=== PATIENT | female | born 1980 | race Caucasian/White ===

== ENCOUNTER 2021-11-04 06:44 | Outpatient (CLI) | payer OTHER, SELFPAY ==
--- NOTE | ~2021-11-04 | MR_ITS ---
EXAMINATION: MR brain/brain stem wo/w con DATE: 11/04/2021 08:04 INDICATION: 3 months of visual disturbance TECHNIQUE: 1. Magnetic resonance imaging (MRI) of the brain and brainstem was performed without and with 18 mL M ultihance intravenous contrast. Sequences included sagittal and axial T1-weighted SE, axial diffusion -weighted FS SE, axial T2*-weighted GRE, axial T2-weighted FLAIR, and axial T2-weighted FSE. Postcont rast axial and coronal T1-weighted SE was obtained. Apparent diffusion coefficient (ADC) maps were cr eated. 2. MRI of the orbits and face was performed without and with 18 mL MultiHance intravenous contrast ut ilizing the same contrast bolus. Small [id number] sequences of the orbits and face included gregory l and axial T2-weighted FS FSE, T1-weighted FSE and fluid sensitive FSE STIR and postcontrast axial a nd coronal T1-weighted FS FSE. COMPARISON: None. FINDINGS: There is prominent metallic magnetic field artifact centered about the oral cavity likely related to dental instrumentation. There are no areas of restricted diffusion to suggest acute infarction. No in tracranial hemorrhage or abnormal intracranial mass lesion. There are no intraparenchymal signal abno rmalities seen on the other pulse sequences. The ventricles are symmetric and normal in size. There a re no abnormal extra-axial fluid collections. Flow voids are seen in the cerebral arteries on the T2- weighted sequences consistent with their expected patency. Left vertebral artery is dominant. No abno rmally enhancing brain lesions. Assessment of the orbits and particularly the left maxillary sinus is limited by magnetic field artif act. There appears to be increased fluid signal surrounding the bilateral optic nerves with elevation of the optic nerve sheaths which measure approximately 6-7 mm measured 4 mm the optic discs. No disc ernible enhancement along the optic nerves to suggest optic neuritis. Orbits appear otherwise normal with normal appearing globes. No evident flattening or bulging of the optic discs. There appears to b e an empty sella with pituitary stalk extending across the midline of the fluid-filled sella to the f mckayla presumably 2 a flattened pituitary. Suprasellar cistern is unremarkable. No abnormal masses or m ass effect upon the optic chiasm or along the course of the optic nerves. Mild to moderate mucosal th ickening throughout the paranasal sinuses. IMPRESSION: 1. Empty sella as well as suggestion of increased fluid surrounding the optic nerves with mild dila tion of the bilateral optic nerve sheaths. The latter can be seen with papilledema would recommend co rrelation with ophthalmic exam. Both findings can be seen with intracranial hypertension. 2. Normal brain. 3. Assessment of the orbits, intracranial fossa and visualized portion of the face is somewhat limite d by prominent metallic magnetic field artifact centered at the oral cavity likely related to dental instrumentation. Reviewed, dictated and finalized at location A. IMPRESSION: 1. Empty sella as well as suggestion of increased fluid surrounding the optic nerves with mild dilation of the bilateral optic nerve sheaths. The latter can be seen with papilledema would recommend correlation with ophthalmic exam. Bot h findings can be seen with intracranial hypertension. 2. Normal brain. 3. Assessment of the orbits, intracranial fossa and visualized portion of the f pebbles is somewhat limited by prominent metallic magnetic field artifact centered at the oral cavity likely related to dental instrumentation.
[2021-11-04 07:23] LABS: Estimated Glomerular Filt Rate > 60
== END 2021-11-04 06:45 | disposition home or self-care (01) ==
PROVIDERS: PCP Physician Assistant; Visit Provider Physician Assistant
DX: H53.9 Unspecified visual disturbance (principal)
CPT/HCPCS: 70543; 70553; A9577